=== PATIENT | female | born 1955 | race Caucasian/White ===

== ENCOUNTER → 2017-05-12 | Outpatient (CLI) | payer BC | LOC: MC.RAD 11:37 | DX: Z12.31 Encounter for screening mammogram for malignant neoplasm of breast (principal); N63.21 Unspecified lump in the left breast, upper outer quadrant ==

== ENCOUNTER → 2017-05-15 | Outpatient (CLI) | payer BC | LOC: MC.RAD 13:53 | DX: N63.20 Unspecified lump in the left breast, unspecified quadrant (principal) ==

== ENCOUNTER → 2018-06-10 | Outpatient (CLI) | payer SELFPAY | LOC: ZCOL.LAB 15:38 | DX: L97.212 Non-pressure chronic ulcer of right calf with fat layer exposed (principal) ==

== ENCOUNTER → 2019-04-27 | Outpatient (CLI) | payer MEDICARE, OTHER | LOC: MC.RAD 16:26 | DX: Z12.31 Encounter for screening mammogram for malignant neoplasm of breast (principal) ==

== ENCOUNTER → 2022-12-20 | Outpatient (CLI) | payer MEDICARE | LOC: MC.RAD 11-01 09:30 | DX: Z12.31 Encounter for screening mammogram for malignant neoplasm of breast (principal) ==

== ENCOUNTER → 2024-01-02 | Outpatient (CLI) | payer MEDICARE ==
[2006-02-10 06:59] VITALS: BP 108/63; PULSE 89; TEMP 98.2
== END ==
LOC: MC.RAD 10:03
DX: Z12.31 Encounter for screening mammogram for malignant neoplasm of breast (principal)